=== PATIENT | female | born 1995 | race Caucasian/White ===

== ENCOUNTER 2022-08-16 17:14 | Emergency (ER) | payer MEDICAID, OTHER ==
[2022-08-16 17:35] VITALS: BP 128/83; PULSE 99
== END 2022-08-16 19:13 | disposition home or self-care (01) ==
LOC: JP.ED 17:14
DX: Q99.9 Chromosomal abnormality, unspecified (principal); F88 Other disorders of psychological development; Z88.0 Allergy status to penicillin; Z88.2 Allergy status to sulfonamides; Z88.8 Allergy status to other drugs, medicaments and biological substances; Z99.3 Dependence on wheelchair; Z74.09 Other reduced mobility
CPT/HCPCS: 72170; 72170-26; 73552-26-LT; 73552-LT; 73610-26-LT; 73610-LT; 99283

== ENCOUNTER 2025-04-08 11:22 | Emergency (ER) | payer MEDICAID ==
[2025-04-08 12:04] VITALS: BP 105/57; PULSE 101
== END 2025-04-08 14:19 | disposition home or self-care (01) ==
LOC: JP.ED 11:22
DX: J40 Bronchitis, not specified as acute or chronic (principal); Z79.899 Other long term (current) drug therapy
CPT/HCPCS: 71046; 71046-26; 99283